=== PATIENT | female | born 1980 | race Caucasian/White ===

== ENCOUNTER 2020-11-26 10:14 | Emergency (ER) | payer OTHER, SELFPAY ==
--- NOTE | 2020-11-26 10:01 | ECG_ITS ---
APPROVED REPORT Exam: Resting ECG HR:76 bpm ECG Measurements Heart Rate 76 AXES AR 138 P 65 QRSd 78 QRS 43 QT 370 T 11 QTc 416 Conclusion Normal sinus rhythm Nonspecific ST and T wave abnormality Abnormal ECG Electronically signed by : Christopher Walters, 11/27/2020 07:10:04
--- NOTE | 2020-11-26 10:16 | HMH.EDGENADL ---
ED Disposition Clinical Impression: Atypical chest pain Reaction to contrast media Qualifiers: Encounter type: initial encounter Qualified Code(s): T50.8X5A - Adverse effect of diagnostic agents, initial encounter Disposition: Home, Self-Care Condition on Discharge: Good Instructions: DI for Atypical Chest Pain Referrals: Moshe Aguilar [Primary Care Provider] - 3 days Time of Disposition: 13:28 - Critical Care Critical Care Time: No Attestation: On , the high probability of a clinically significant, sudden or life threatening deterioration of the following system(s) required my full and direct attention, intervention and personal management. The time I documented below is in addition to time spent performing reported procedures but includes the following listed in this critical care notation. Medical Decision Making - Medical Records Medical records reviewed: Yes: I reviewed the patient's medical records. - Henrry Inquiry Pt receiving controlled substance: No Vital Signs: 11/26/20 10:19 11/26/20 12:00 11/26/20 12:30 Temperature 98.0 F Temperature Source Oral Pulse Rate 68 71 Pulse Rate [Right] 87 Respiratory Rate 16 18 18 Blood Pressure 131/72 129/69 Blood Pressure [Right Arm] 117/73 Blood Pressure Mean 93 87 Blood Pressure Mean [Right Arm] 87 Blood Pressure Source [Right Arm] Automatic Cuff Blood Pressure Position [Right Arm] Sitting 02 Sat by Pulse Oximetry 99 97 97 Oxygen Delivery Method Room Air 11/26/20 13:00 Temperature Temperature Source Pulse Rate 76 Pulse Rate [Right] Respiratory Rate 20 Blood Pressure 106/71 L Blood Pressure [Right Arm] Blood Pressure Mean 80 Blood Pressure Mean [Right Arm] Blood Pressure Source [Right Arm] Blood Pressure Position [Right Arm] 02 Sat by Pulse Oximetry 98 Oxygen Delivery Method - Lab Data Lab results reviewed: Yes: I reviewed the patient's lab results. Lab Results 11/26/20 10:15: WBC 7.7, RBC 4.45, Hgb 12.9, Hct 39.1, MCV 87.9, MCH 29.1, MCHC 33.1, RDW 13.6, Plt Count 257, MPV 7.9, Neut % (Auto) 71.0, Lymph % (Auto) 21.6, Geary % (Auto) 4.7, Eos % (Auto) 2.1, Baso % (Auto) 0.6, Neut # (Auto) 5.5, Lymph # (Auto) 1.7, Geary # (Auto) 0.4, Eos # (Auto) 0.2, Baso # (Auto) 0.1 11/26/20 10:15: Sodium 139, Potassium 3.9, Chloride 102, Carbon Dioxide 26, Anion Gap 14.9, BUN 11, Creatinine 0.50 L, Estimated Creat Clear 161, Estimated GFR 137, Est GFR ( Amer) 165, Glucose 85, Calcium 9.6, Total Bilirubin 0.4, AST 25, ALT 20, Alkaline Phosphatase 70, Troponin I < 0.01, Total Protein 7.8, Albumin 5.1 H, Globulin 2.7, Albumin/Globulin Ratio 1.9 H, Lipase 62 11/26/20 10:15: D-Dimer 0.58 H 11/26/20 11:45: Urine Color Yellow, Urine Appearance Clear, Urine pH 7.0, Ur Specific [place] <= 1.005, Urine Protein Negative, Urine Glucose (UA) Negative, Urine Ketones Negative, Urine Blood Trace-i, Urine Nitrate Negative, Urine Bilirubin Negative, Urine Urobilinogen 0.2, Ur Leukocyte Esterase Negative, Urine RBC 5-10, Ur Squamous Epith Cells 3-5 11/26/20 11:45: Urine HCG, Qual Negative Result diagrams: 11/26/20 10:15 11/26/20 10:15 Orders (Tests/Meds): ED MEDICATIONS Discontinued Medications Generic Name Dose Route Start Last Admin Trade Name Freq PRN Reason Stop Dose Admin Diphenhydramine HCl 25 mg 11/26/20 12:02 11/26/20 12:05 Diphenhydramine 25mg Capsule PO 11/26/20 12:03 25 mg ONCE ONE Administration Iopamidol 70 ml 11/26/20 11:33 11/26/20 11:34 Iopamidol-370 (76%);100ml Bottle IV 11/26/20 11:34 70 ml ONCE ONE Administration Methylprednisolone Sodium Succinate 125 mg 11/26/20 12:02 11/26/20 12:03 Methylprednisolone Sod Succ 125mg Vial IV 11/26/20 12:03 125 mg ONCE ONE Administration Sodium Chloride 50 ml 11/26/20 11:33 11/26/20 11:34 0.9 % Sodium Chloride 50 Ml Vial IV 11/26/20 11:34 50 ml ONCE ONE Administration Sodium Chloride 10 ml 11/26/20 11:33 11/26/20 11:34 Sodium Chlor
--- NOTE | 2020-11-26 10:17 | XR_ITS ---
PROCEDURE INFORMATION: Exam: XR Chest Exam date and time: 11/26/2020 10:17 AM Age: 40 years old Clinical indication: Right-sided; Patient HX: Right sided chest pain starting last night; Additional info: Cp TECHNIQUE: Imaging protocol: XR of the chest. Views: 1 view. COMPARISON: No relevant prior studies available. FINDINGS: Lungs: Unremarkable. No consolidation. Pleural spaces: Unremarkable. No pleural effusion. No pneumothorax. Heart/Mediastinum: Unremarkable. No cardiomegaly. Bones/joints: Unremarkable. IMPRESSION: No acute findings. Masslike density adjacent to the left hemidiaphragm and left heart border likely nipple. Follow-up with nipple markers.
[2020-11-26 10:19] VITALS: BP 117/73; PULSE 87; RESP 16; TEMP 36.7; O2SAT 99; BMI 25.7
[2020-11-26 10:43] LABS: Basophils # 0.1 K/mm3 (0-0.2); Basophils % 0.6 % (0.1-2.0); Eosinophils # 0.2 K/mm3 (0.0-0.4); Eosinophils % 2.1 % (0.1-12.0); Hematocrit 39.1 % (37.0-47.0); Hemoglobin 12.9 g/dL (12.2-16.2); Lymphocytes # 1.7 K/mm3 (0.7-4.5); Lymphocytes % 21.6 % (10-50); Mean Corpuscular HGB Conc 33.1 g/dL (31.8-35.4); Mean Corpuscular Hemoglobin 29.1 pg (27.0-31.2); Mean Corpuscular Volume 87.9 fl (81-99); Mean Platelet Volume 7.9 fl (7.4-10.4); Monocytes # 0.4 K/mm3 (0.1-1.0); Monocytes % 4.7 % (1.7-9.3); Neutrophils # 5.5 K/mm3 (1.8-7.8); Platelet Count 257 K/mm3 (142-424); Red Blood Count 4.45 M/mm3 (4.20-5.40); Red Cell Distribution Width 13.6 % (11.5-17.5); White Blood Count 7.7 K/mm3 (4.8-10.8)
[2020-11-26 10:47] LABS: Chloride 102 mmol/L (98-107); Sodium 139 mmol/L (136-145)
[2020-11-26 10:48] LABS: Potassium 3.9 mmoL/L (3.5-5.1)
[2020-11-26 10:50] LABS: Alanine Aminotransferase 20 U/L (12-78); Albumin Level 5.1 g/dl (3.5-5.0); Albumin/Globulin Ratio 1.9 (1.1-1.8); Alkaline Phosphatase 70 U/L (38-126); Anion Gap 14.9 mEq/L (5-15); Aspartate Amino Transferase 25 U/L (14-36); Bilirubin,Total 0.4 mg/dl (0.2-1.3); Blood Urea Nitrogen 11 mg/dl (7-17); Calcium 9.6 mg/dl (8.4-10.2); Carbon Dioxide 26 mmol/L (22.0-30.0); Creatinine Clearance Estimated 161 mL/min (50-200); Estimated Glomerular Filt Rate 137 ml/min (>60); GFR (African American) 165 ML/MIN (>60); Globulin 2.7 g/dL (1.3-3.2); Glucose 85 mg/dl (74-100); Lipase 62 U/L (23-300); Total Protein,Serum 7.8 g/dl (6.3-8.2)
[2020-11-26 10:56] LABS: D-Dimer 0.58 ug/mL (0.0-0.5)
--- NOTE | 2020-11-26 10:59 | CT_ITS ---
PROCEDURE INFORMATION: Exam: CTA Chest With Contrast Exam date and time: 11/26/2020 10:59 AM Age: 40 years old Clinical indication: Chest wall pain; Patient HX: Right sided chest pain; Additional info: Dyspnea, R chest pain. D-dimer 0.58 TECHNIQUE: Imaging protocol: Computed tomographic angiography of the chest with contrast. 3D rendering (Not supervised by radiologist): MIP and/or 3D reconstructed images were created by the technologist. Radiation optimization: All CT scans at this facility use at least one of these dose optimization techniques: automated exposure control; mA and/or kV adjustment per patient size (includes targeted exams where dose is matched to clinical indication); or iterative reconstruction. Contrast material: ISOVUE 370; Contrast volume: 70 ml; Contrast route: INTRAVENOUS (IV); COMPARISON: CR XR CHEST PORTABLE 11/26/2020 10:29 AM FINDINGS: Pulmonary arteries: No segmental or larger pulmonary emboli. Assessment of subsegmental arteries in the lung bases is degraded by motion artifact. Aorta: No aortic aneurysm. No aortic dissection. Lungs: No consolidation. No masses. Pleural spaces: Unremarkable. No pneumothorax. No pleural effusion. Heart: No cardiomegaly. No pericardial effusion. Lymph nodes: Multiple calcified mediastinal and hilar lymph nodes are likely the sequelae of old granulomatous disease. Bones/joints: No acute fracture. Soft tissues: Unremarkable. IMPRESSION: No segmental or larger pulmonary emboli.
[2020-11-26 11:02] LABS: Troponin I < 0.01 ng/ml (0.00-0.034)
--- NOTE | 2020-11-26 11:59 | PC.NURSE ---
RN to bedside to collect urine sample when patient started complaining of itching, eyes watering, and ear discomfort. patient with chest irritation that is red and itching. MD notified and orders for benedryl and solumedrol ordered.
[2020-11-26 12:00] VITALS: BP 131/72; PULSE 68; RESP 18; O2SAT 97
[2020-11-26 12:09] LABS: Microscopic, Urine URINE MICROSCOPIC (MICROSCOPIC)
[2020-11-26 12:15] LABS: Appearance,Urine CLEAR (Clear); Bilirubin,Urine Negative (Negative); Blood, Urine TRACE-I (Negative); Color,Urine YELLOW (Yellow); Glucose,Urine (UA) Negative (Negative); Ketones,Urine Negative (Negative); Leukocyte Esterase,Urine Negative (Negative); Nitrate,Urine Negative (Negative); Protein,Urine Negative (Negative); Specific Gravity, Urine <= 1.005 (1.005-1.030); Urobilinogen,Urine 0.2 EU/dl (0.2)
[2020-11-26 12:17] LABS: Urine Pregnancy, HCG Qual. Negative (Negative)
[2020-11-26 12:30] VITALS: BP 129/69; PULSE 71; RESP 18; O2SAT 97
[2020-11-26 13:00] VITALS: BP 106/71; PULSE 76; RESP 20; O2SAT 98
[2020-11-26 13:43] VITALS: BP 127/71; PULSE 81; RESP 16; TEMP 36.7
== END 2020-11-26 13:44 | disposition home or self-care (01) ==
PROVIDERS: Emergency Provider Family Medicine; PCP Family Medicine
DX: R07.89 Other chest pain (principal); T50.8X5A Adverse effect of diagnostic agents, initial encounter; Z88.5 Allergy status to narcotic agent
CPT/HCPCS: 71045; 71275; 80053; 81001; 81025; 83690; 84484; 85025; 85378; 93005; 96374; 99283; Q9967

== ENCOUNTER 2021-03-21 18:01 | Emergency (ER) | payer OTHER, SELFPAY ==
[2021-03-21 18:20] VITALS: BP 133/67; PULSE 99; RESP 18; TEMP 37.3; O2SAT 100; BMI 25.7
[2021-03-21 18:51] LABS: UTC Influenza A Antigen Negative (Negative)
[2021-03-21 18:52] LABS: UTC Influenza B Antigen Negative (Negative)
[2021-03-21 19:54] LABS: UTC Influenza A Antigen Negative (Negative)
[2021-03-21 19:55] LABS: UTC Influenza B Antigen Negative (Negative)
[2021-03-21 19:57] LABS: Adenovirus,PCR Not Detected (NotDetected); Bordetella Pertussis Not Detected (NotDetected); Chlamydophila Pneumoniae, PCR Not Detected (NotDetected); Coronavirus 19, PCR Not Detected (NotDetected); Coronavirus 229E Not Detected (NotDetected); Coronavirus NL63 Not Detected (NotDetected); Coronavirus OC43 Not Detected (NotDetected); Coronovirus HKU1,PCR Not Detected (NotDetected); Human Metapneumovirus Not Detected (NotDetected); Influenza A, PCR Not Detected (NotDetected); Influenza AH1, 2009 Not Detected (NotDetected); Influenza AH1, PCR Not Detected (NotDetected); Influenza AH3,PCR Not Detected (NotDetected); Influenza B, PCR Not Detected (NotDetected); Mycoplasma Pneumoniae, PCR Not Detected (NotDetected); Parainfluenza 1, PCR Not Detected (NotDetected); Parainfluenza 2, PCR Not Detected (NotDetected); Parainfluenza 3, PCR Not Detected (NotDetected); Parainfluenza 4, PCR Not Detected (NotDetected); Respiratory Syncytial Virus Not Detected (NotDetected); Rhinovirus/Enterovirus Not Detected (NotDetected)
[2021-03-21 19:59] LABS: UTC Strep Screen (Rapid) Negative (Negative)
--- NOTE | 2021-03-21 20:09 | HMH.EDUTC ---
[facility] [place] Disposition Clinical Impression: Viral syndrome Pharyngitis Qualifiers: Pharyngitis/tonsillitis etiology: unspecified etiology Qualified Code(s): J02.9 - Acute pharyngitis, unspecified Disposition: Home, Self-Care Condition on Discharge: Good Instructions: Sore Throat, DI for Pharyngitis/Tonsillopharyngitis -- Adult, DI for Viral Syndrome, DI for COVID-19 (Suspected or Confirmed ), Preventing the Spread of Coronavirus Discharge Instructions Additional Instructions: Drink plenty of fluids. Take tylenol for pain or fever. Return if you begin to have difficulty breathing. Follow up with your regular doctor. GO TO THE ER FOR ANY WORSENING SYMPTOMS Quarantine until you know the results of your covid-19 test. If it is positive, the health department should call you and give you further instructions about your length of Quarantine and other things. Notify your school or workplace of your results and follow their instructions regarding return to work/school. Prescriptions: Ibuprofen [Ibuprofen 600mg Tablet] 600 mg PO Q6HP PRN #30 tab PRN Reason: Mild Pain Transmission Status: Received by [facility] Benzonatate [Tessalon Perle 100mg Cap] 100 mg PO TIDP PRN #30 cap PRN Reason: Cough Transmission Status: Received by [facility] Ondansetron [Zofran 4mg ODT] 4 mg PO DAILYP PRN #12 tab PRN Reason: Nausea Transmission Status: Received by [facility] Referrals: Moshe Aguilar [Primary Care Provider] - Time of Disposition: 20:12 Medical Decision Making - Medical Records Medical records reviewed: No: I reviewed the patient's medical records. - Henrry Inquiry Pt receiving controlled substance: No Vital Signs: 03/21/21 18:20 03/21/21 20:10 Temperature 99.1 F 99.1 F Temperature Source Oral Pulse Rate 99 H Pulse Rate [Right Brachial] 99 H Respiratory Rate 18 18 Blood Pressure 133/67 Blood Pressure [Right Arm] 133/67 Blood Pressure Mean [Right Arm] 89 Blood Pressure Source [Right Arm] Automatic Cuff Blood Pressure Position [Right Arm] Sitting 02 Sat by Pulse Oximetry 100 Oxygen Delivery Method Room Air - Lab Data Lab Results 03/21/21 18:38: Influenza Type A Ag Negative, Influenza Type B Ag Negative 03/21/21 19:40: Strep Sc[facility] Negative 03/21/21 19:50: Influenza Type A Ag Negative, Influenza Type B Ag Negative Orders (Tests/Meds): ORDERS Category Date Time Status Full Resp Panel w/COVID ([facility]) Routine Lab 03/21/21 19:50 Received Strep Screen Confirmation Stat Micro 03/21/21 19:40 Received [facility] UTC HPI - General Stated complaint: sore throat, weakness, headache Time Seen by Provider: 03/21/21 20:09 Mode of Arrival: Ambulatory Source of Information: Patient Limitations: No Limitations Description of Symptoms (Recalled from Triage Doc. by RN): PATIENT C/O FLU-LIKE SYMPTOMS HEENT Symptoms (Recalled from RN notes): No Resp Symptoms (Recalled from RN notes): No Skin Symptoms (Recalled from RN notes): No MS Symptoms (Recalled from RN notes): No Functional Status (Recalled from RN notes): WNL - History of Present Illness Provider Complaint: She states that she has felt bad for the past 2 days. She had a negative covid test yesterday. So, she is here to be checked further. - Related Data Previous Rx's Medication Instructions Recorded Benzonatate [Tessalon Perle 100mg 100 mg PO TIDP PRN #30 cap 03/21/21 Cap] Ibuprofen [Ibuprofen 600mg 600 mg PO Q6HP PRN #30 tab 03/21/21 Tablet] Ondansetron [Zofran 4mg ODT] 4 mg PO DAILYP PRN #12 tab 03/21/21 Allergies Allergy/AdvReac Type Severity Reaction Status Date / Time meperidine [From Demerol] Allergy Verified 11/26/20 10:36 midazolam [From Versed] Allergy Verified 03/21/21 18:50 - Worker's Comp Is this a Worker's Comp case?: No [facility] History - Hepatitis A Screen Drug use history?: No High risk sexual behaviors?: No History of sexually transm
[2021-03-21 20:10] VITALS: BP 133/67; PULSE 99; RESP 18; TEMP 37.3; O2SAT 100
== END 2021-03-21 20:15 | disposition home or self-care (01) ==
PROVIDERS: Emergency Provider Nurse Practitioner Family; PCP Family Medicine
DX: B34.9 Viral infection, unspecified (principal); J02.9 Acute pharyngitis, unspecified; Z20.822 Contact with and (suspected) exposure to COVID-19
CPT/HCPCS: 87581; 87633; 87798; 87804; 87880; 99203; G0463

== ENCOUNTER 2021-05-26 11:09 | Emergency (ER) | payer OTHER, SELFPAY ==
[2021-05-26 12:07] VITALS: BP 0/0; PULSE 0; RESP 0; TEMP -17.7; TEMP 0; O2SAT 0
== END 2021-05-26 12:08 | disposition left against medical advice (07) ==
LOC: UTC 11:12
PROVIDERS: Emergency Provider Nurse Practitioner Family
DX: Z53.21 Procedure and treatment not carried out due to patient leaving prior to being seen by health care provider (principal)

== ENCOUNTER 2022-01-25 18:10 | Emergency (ER) | payer OTHER, SELFPAY ==
[2022-01-25 18:11] VITALS: BP 133/76; PULSE 98; RESP 16; TEMP 37.1; O2SAT 98; BMI 27.1
--- NOTE | 2022-01-25 18:21 | PC.NURSE ---
AUGUSTINE MCALLISTER at for angelina
--- NOTE | 2022-01-25 18:34 | HMH.EDALLER ---
ED Disposition Clinical Impression: Allergic reaction Qualifiers: Encounter type: initial encounter Qualified Code(s): T78.40XA - Allergy, unspecified, initial encounter Disposition: Home, Self-Care Condition on Discharge: Good Instructions: DI for Insect Bites and Stings Prescriptions: methylPREDNISolone [Medrol 4mg tab] 4 mg PO DIRECTED #21 tab Transmission Status: Pending to [facility] Ondansetron [Zofran 4mg ODT] 4 mg PO BIDP PRN #10 tab PRN Reason: Nausea Transmission Status: Pending to [facility] Referrals: Priti Luciano [Primary Care Provider] - - Critical Care Critical Care Time: No Attestation: On , the high probability of a clinically significant, sudden or life threatening deterioration of the following system(s) required my full and direct attention, intervention and personal management. The time I documented below is in addition to time spent performing reported procedures but includes the following listed in this critical care notation. Medical Decision Making - Medical Records Medical records reviewed: Yes: I reviewed the patient's medical records. - Henrry Inquiry Pt receiving controlled substance: No Vital Signs: 01/25/22 18:11 01/25/22 18:53 Temperature 98.7 F 98 F Temperature Source Oral Oral Pulse Rate 78 Pulse Rate [Radial] 98 H Respiratory Rate 16 16 Blood Pressure 141/74 H Blood Pressure [Right Arm] 133/76 Blood Pressure Mean [Right Arm] 95 Blood Pressure Position Sitting Blood Pressure Position [Right Arm] Sitting 02 Sat by Pulse Oximetry 98 Oxygen Delivery Method Room Air Room Air Orders (Tests/Meds): ED MEDICATIONS Generic Name Dose Route Start Last Admin Trade Name Freq PRN Reason Stop Dose Admin Sodium Chloride 1,000 mls @ 999 mls/hr 01/25/22 18:30 01/25/22 18:42 Sod Chlor 0.9% 1000ml Bag IV 01/25/22 19:30 Not Given .Q1H1M CHEY Sodium Chloride 8 ml 01/25/22 18:25 Sodium Chloride 0.9% 10ml Vial IV 02/24/22 18:24 NEEDED PRN dilute pepcid Discontinued Medications Generic Name Dose Route Start Last Admin Trade Name Freq PRN Reason Stop Dose Admin Dexamethasone Sodium Phosphate 10 mg 01/25/22 18:25 01/25/22 18:42 Dexamethasone 4mg/Ml 5ml Mdv IV 01/25/22 18:26 Not Given ONCE ONE Dexamethasone Sodium Phosphate 10 mg 01/25/22 18:43 01/25/22 18:44 Dexamethasone 4mg/Ml 5ml Mdv PO 01/25/22 18:44 10 mg ONCE ONE Administration Diphenhydramine HCl 25 mg 01/25/22 18:25 01/25/22 18:42 Diphenhydramine 50mg/Ml Vial IV 01/25/22 18:26 Not Given ONCE ONE Diphenhydramine HCl 25 mg 01/25/22 18:43 01/25/22 18:44 Diphenhydramine 25mg Capsule PO 01/25/22 18:44 25 mg ONCE ONE Administration Famotidine 20 mg 01/25/22 18:25 01/25/22 18:42 Famotidine 20mg/2ml Vial IV 01/25/22 18:26 Not Given ONCE ONE Famotidine 20 mg 01/25/22 18:43 01/25/22 18:44 Famotidine 20mg Tablet PO 01/25/22 18:44 20 mg ONCE ONE Administration - Reevaluation(s) Time: 19:24 Reevaluation #1: On reevaluation, patient is remained hemodynamically stable. She is declining IV medications at this time. Repeat examination does not show any pooling of secretions, displaced uvula or obstruction. There is no evidence of anaphylaxis at this time. Patient replaced on a short course of steroids. Needs follow-up with PCP in 48 hours. Given strict return precautions. Verbalized understanding. Medical Decision Narrative: 42-year-old female presented to the emergency department with some discomfort in the throat after sustaining a bee sting. Patient has no evidence of anaphylaxis at this time. She is hemodynamically stable. Work-up initiated. Allergic React/Insect Bite HPI - General Chief complaint: Allergic Reaction Stated complaint: stung by bee,throat clossing up Time Seen by Provider: 01/25/22 18:15 Mode of Arrival - ED Triage: Ambulatory Limitations: No Limitation
[2022-01-25 18:53] VITALS: BP 141/74; PULSE 78; RESP 16; TEMP 36.6; O2SAT 98
--- NOTE | 2022-01-25 19:34 | PC.NURSE ---
discharge instructions discussed at length with patient and family; advised to follow up with pcp tomorrow re: possible epipen prescription,
== END 2022-01-25 19:35 | disposition home or self-care (01) ==
PROVIDERS: Emergency Provider Emergency Medicine; PCP Family Medicine Geriatric Medicine
DX: T63.441A Toxic effect of venom of bees, accidental (unintentional), initial encounter (principal); J02.9 Acute pharyngitis, unspecified; Y92.096 Garden or yard of other non-institutional residence as the place of occurrence of the external cause
CPT/HCPCS: 99282